=== PATIENT | male | born 1985 | race Hispanic/Latino ===

== ENCOUNTER → 2024-08-31 11:00 | Outpatient (CLI) | payer OTHER, SELFPAY ==
--- NOTE | 2024-08-31 11:02 | DI.MRI.S_ITS ---
PROCEDURE: MR LUMBAR SPINE WO CON INDICATIONS: LOW BACK PAIN TECHNIQUE: Noncontrast sagittal T1 spin echo and T2 fast echo, sagittal STIR, and T2 fast spin echo through the lumbar spine. In cases with scoliosis, additional coronal T2 fast spin echo may be performed. COMPARISON: None. FINDINGS: Image quality: Excellent. Alignment and Curvature: There is normal bony alignment. Bone Marrow: Mild low T1 high T2 signal in the superior endplate of S1 commonly related to degenerative Modic type changes, although if there is any history of trauma subtle bone edema related to trabecular fracture or bone contusion could have a similar appearance. There are other less common causes of bone edema. Multilevel degenerative changes with mild disc desiccation, disc height loss at L4-5 and L5-S1. Spinal Cord: Conus medullaris terminates at the L1 level. Visualized cord demonstrates normal signal and size. Paraspinous Soft Tissues: No paravertebral masses. T12-L1: Normal appearance. L1-L2: Normal appearance. L2-L3: Normal appearance. L3-L4: Mild facet osseous and ligamentous hypertrophic changes without central stenosis, disc protrusion or neural foraminal narrowing. L4-L5: Degenerative disc disease with broad-based posterior or circumferential disc bulge, mild facet osseous and ligamentous hypertrophic changes with mild bilateral neural foraminal narrowing. No central stenosis. L5-S1: Degenerative disc disease with broad-based posterior or circumferential disc bulge, mild facet osseous and ligamentous hypertrophic changes with mild bilateral neural foraminal narrowing. No central stenosis. IMPRESSION: Mild degenerative changes L4-5 and L5-S1. Mild nonspecific increased T2 weighted signal/bone edema in the superior endplate of S1. Dictated by: Jose L Araujo M.D. on 08/31/2024 at 12:53 Approved by: Jose L Araujo M.D. on 08/31/2024 at 13:04
== END ==
PROVIDERS: Referring Provider Orthopaedic Surgery Orthopaedic Surgery of the Spine; Visit Provider Orthopaedic Surgery Orthopaedic Surgery of the Spine
DX: M54.59 Other low back pain (principal); M51.369 Other intervertebral disc degeneration, lumbar region without mention of lumbar back pain or lower extremity pain; M48.061 Spinal stenosis, lumbar region without neurogenic claudication; M51.379 Other intervertebral disc degeneration, lumbosacral region without mention of lumbar back pain or lower extremity pain; M48.07 Spinal stenosis, lumbosacral region
CPT/HCPCS: 72148

== ENCOUNTER 2024-09-12 07:15 | Day surgery (SDC) | payer OTHER, SELFPAY ==
[2024-09-07 08:33] VITALS: BMI 30.5
[2024-09-12] VITALS (9 sets, daily range): BP systolic 112–141; BP diastolic 74–91; PULSE 71–88; RESP 12–16; TEMP 36–36.3; O2SAT 95–98; BMI 30.9
[2024-09-12] MEDS: ACETAMINOPHEN 325 MG TABLET 975 MG PO (07:58)
[2024-09-12] MEDS: LACTATED RINGERS 1,000 ML 42 ML IV ×2 (07:59→10:16)
--- NOTE | 2024-09-12 08:33 | PM.PREOP ---
Pre-operative Note Interval Note History & Physical reviewed/Exam performed by Physician: Yes Changes to H&P: No
[2024-09-12] MEDS: CEFAZOLIN 2 GM/100 ML PREMIX 100 ML IV (09:00)
--- NOTE | 2024-09-12 09:14 | SUR.OPER ---
Supine on padded OR bed, head on pillow, left arm secured on padded arm boards at <90 degrees abduction, right arm resting on padded arm table, legs uncrossed, safety belt at thigh, tape over blanket over lower legs.
[2024-09-12] MEDS: BUPIVACAINE 0.25% (PF) VIAL 30 ML INJ (09:19)
--- NOTE | 2024-09-12 11:20 | PM.OP.1 ---
Operative Date/Time/Diagnoses Date of procedure: 09/12/24 Time of procedure: 11:20 Pre-op diagnosis: RIGHT middle finger trigger finger, right carpal tunnel and right cubital tunnel syndrome Post-op diagnosis: same Procedure & Clinicians Procedure: RIGHT Middle finger trigger finger release, right carpal tunnel release, right cubital tunnel release with anterior transposition Same procedure as scheduled: Yes Surgeon: Jose L Hall Click Yes if Unassisted: Yes Anesthesia Type: General Operative Notes Findings: Cubital tunnel was scarred with the ulnar nerve trapped especially posteriorly. The nerve also subluxed with flexion of the elbow. Thickening of the A1 silvino of the middle finger and thickening of the transverse carpal ligament. Closure Type: primary Estimated Blood Loss (mL): 30 Procedure in detail: Laterality: Right Preoperative diagnosis: Right Cubital tunnel syndrome, right carpal tunnel syndrome, right long finger trigger finger. Procedure performed: Right Cubital tunnel decompression with anterior transposition, right carpal tunnel release and right long finger trigger finger release Postoperative diagnosis: Same Primary Surgeon: Jose L Hall MD Secondary Surgeon: None Anesthesia: General EBL: 30 ml Tourniquet: 95 minutes @ 250 mmHg Implants: none Indication For Surgery: Continued paresthesias despite non-operative treatments. He was also found to have triggering of the right long finger. We discussed the goals of surgery and the risks of injury to the ulnar nerve, MABC branches, and lack of symptom relief. The risks, benefits, and alternatives were discussed. Risks include pain, bleeding, infection, damage to nearby structures and cartilage, lack of symptom relief, need for further surgery, DVT, PE, stroke, and . Written consent was obtained. Examination Under Anesthesia: Nerve was unstable in the cubital tunnel. Operative Findings: The cubital tunnel was released and since the nerve would sublux out of the groove it was determined that we would require a anterior transposition with an adipose flap, thickening of the transverse carpal ligament and thickening of the A1 silvino of the right long finger. Procedure in Detail: The patient was met in the pre-operative hold area. Consent was verified and operative extremity was signed. The patient then met with anesthesia and was brought back to the operating room. The patient was placed supine on the operating table. A general anesthetic was administered. The extremity was then prepped and draped in the usual sterile fashion. A timeout was performed per protocol. All were in agreement and we proceeded. The arm was exsanguinated, and tourniquet was elevated. RIGHT LONG FINGER TRIGGER FINGER RELEASE A longitudinal incision was made at the level of the A1 pully overlying the affected digit. Blunt dissection was made with scissors down to the tendon sheath and the tissues were spread in line with the tendon and neurovascular structures. 3 blunt retractors were placed and the A1 silvino was identified. The A1 silvino was cut sharply with a knife from the distal to the proximal edge. A complete release was confirmed with the use of an elevator. Synovitis and thickening of the tendons were seen underneath it. The finger was then flexed and extended without any catching. The wound was irrigated copiously and closed with horizontal mattress sutures. RIGHT CARPAL TUNNEL RELEASE A 3cm longitudinal incision was made in line with the ulnar border of the ring finger starting at Bennett's Cardinal line distally. This was just radial to the hook of the hamate. Sharp dissection was brought down through the palmar fascia. Retractors were placed. The transverse carpal ligament was identified and a knife was used to incise it longitudinally until fat was seen distally in the palm. Long handled Metzenbaum scissors were then used to create a pocket just superficial to the transverse carpal ligament and a retractor was placed. The scissors were then placed deep to the ligament to bluntly separate the contents of the canal from ligament. I then pointed the tips of the scissors ulnarly and completed the release 2 cm into the antebrachial fascia. A freer elevator was used to confirm complete release both proximally and distally. The wound was then irrigated copiously and closed with 4-0 nylon in a horizontal mattress configuration. RIGHT CUBITAL TUNNEL RELEASE with transposition A 16cm incsion was made over the course of the ulnar nerve at the elbow. Careful dissection was brought down to the fascia where 1 branches of MABC nerve were seen and protected. The cubital tunnel was opened proximally along the posterior edge of the nerve. The cubital tunnel was carefully opened distally. Gentle neurolysis was performed but care was taken to not neurolyse any structures that were contributing to stability on the deep surface of the nerve. The distal branches were identified and left in place. There were distal branches that started at the medial epicondyle. The superficial and deep fascia of the forearm muscles were released. A finger was used to ensure a complete release proximally and distally without any persistent compression points. When ranging the elbow the nerve would completely sublux out of the cubital tunnel. It was decided that we would require a adipose flap for the anterior transposition. The flap was carefully made starting superiorly and working our way inferiorly. He has adequate fat to create the adipose flap. A portion of the septum was removed. The nerve then was easily placed into the bed of the fat and the fat was secured to the medial epicondyle with 3-0 Vicryl. The elbow was then taken through range of motion and there was adequate room for the nerve to glide anterior to the medial epicondyle. I was also able to stick my finger in side this fat tunnel and there was plenty of room and there is no locations where the nerve was being compressed. The wound was then irrigated copiously and the fascial flaps were closed loosely over the nerve. The anterior flap of the tunnel tissue was loosely approximated to the posterior subcutaneous tissues without any compression on the nerve. The skin was then closed with 2-0 vicryl and running 3-0 nylon. 30cc of local anesthetic were placed. A large bulky dressing was applied.. The patient was awakened and transferred to the recovery room. Postoperative Plan: Same day surgery discharge Dressing on until follow up Short arc ROM OK with dressing on F/u in 2 weeks to advance ROM Jose L Hall MD Complications: none Post-operative Condition: stable Disposition: PACU
[2024-09-12] MEDS: OXYCODONE IR 5 MG TABLET PO ×2 (11:29→12:05)
[2024-09-12] MEDS: ONDANSETRON 4 MG/2 ML INJ IV (12:17)
--- NOTE | 2024-09-12 12:22 | SUR.PHASEII ---
Patient c/o nausea after 2nd Oxycodone. Patient had tolerated applesauce. Medicated with Zofran.
--- NOTE | 2024-09-12 15:40 | SUR.PHASEII ---
Patient sat at the side of the bed and vomited clear fluid. He requested to get dressed after vomiting, spouse present. Patient taken to the bathroom by wheelchair and requested to discharge. He reported his nausea improved and his RUE pain was 3/10. Patient requested a sling for comfort, VTO from Dr. Hall patient may have sling. Large sling placed for comfort.
== END 2024-09-12 13:05 | disposition home or self-care (01) ==
PROVIDERS: Referring Provider Orthopaedic Surgery; Visit Provider Orthopaedic Surgery
PROC: (CPT 64718; principal; 2024-09-12 08:30)
DX: G56.21 Lesion of ulnar nerve, right upper limb (principal); G56.01 Carpal tunnel syndrome, right upper limb; M65.331 Trigger finger, right middle finger; Z87.891 Personal history of nicotine dependence
CPT/HCPCS: 64718; 64721; 26055; J0690; J1100; J1171; J2250; J2405; J2704; J3010

== ENCOUNTER → 2024-12-19 07:21 | Outpatient (CLI) | payer OTHER, SELFPAY ==
--- NOTE | 2024-12-19 07:41 | DI.MRI.S_ITS ---
PROCEDURE: MR SHOULDER RT WO CON INDICATIONS: PAIN TECHNIQUE: Noncontrast oblique coronal T2 fast spin echo with fat saturation, oblique sagittal T1 spin echo and T2 fast spin echo with fat saturation, axial T1 spin echo and T2 fast spin echo with fat saturation through the shoulder. COMPARISON: None. FINDINGS: Image quality: Excellent. Rotator cuff: Low-grade articular and bursal surface partial thickness tear involving distal supraspinatus at its insertion on humeral head extending to musculotendinous junction. Distal infraspinatus and subscapularis tendinosis is seen. No full- thickness rotator cuff tendon rupture. Sagittal images demonstrate no significant rotator cuff muscle atrophy. Bones and bursae: chronic appearing shallow Hill-Sachs deformity is seen. No Bankart fracture. No marrow edema. No acute fracture or dislocation. ld acromioclavicular joint osteoarthritic changes are seen. Type 2 acromion without an os acromiale. Small amount of joint fluid and subacromial subdeltoid bursal fluid is seen, no loose bodies. Capsule and soft tissues: There is fraying of superior anterior glenoid labrum with T2 hyperintense signal and adjacent 7 x 5 mm cystic area suggestive of superior anterior glenoid labral tear with perilabral cyst. Subtle signal abnormality and fraying involving anterior inferior glenoid labrum is also seen. The long head of the biceps tendon demonstrates normal location and morphology. The rotator interval appears normal, without fibrosis. The coracohumeral ligament is normal in thickness. IMPRESSION: 1. Chronic appearing shallow Hill-Sachs deformity. No Bankart fracture. No marrow edema. No acute fracture or dislocation. Mild acromioclavicular joint osteoarthritis. Small joint effusion and subacromial subdeltoid bursal fluid, no loose bodies. 2. Low-grade articular and bursal surface partial thickness tear involving distal supraspinatus extending to musculotendinous junction. Distal infraspinatus and subscapularis tendinosis. No full-thickness rotator cuff tendon rupture. 3. Suggestion of superior anterior glenoid labral tear with adjacent sub cm perilabral cyst as above. Suggestion of subtle anterior inferior glenoid labral tear. Dictated by: Jose Mathews M.D. on 12/19/2024 at 10:17 Approved by: Jose Mathews M.D. on 12/19/2024 at 10:26
== END ==
LOC: MRI 07:22
PROVIDERS: PCP Family Medicine; Referring Provider Family Medicine; Visit Provider Family Medicine
DX: M75.111 Incomplete rotator cuff tear or rupture of right shoulder, not specified as traumatic (principal); M19.011 Primary osteoarthritis, right shoulder; M25.511 Pain in right shoulder
CPT/HCPCS: 73221

== ENCOUNTER → 2025-02-03 06:52 | Outpatient (CLI) | payer OTHER, SELFPAY ==
--- NOTE | 2025-02-03 06:53 | DI.US.S_ITS ---
PROCEDURE: US ABDOMEN LIMITED INDICATIONS: RUQ pain TECHNIQUE: Real-time scanning was performed of the abdominal and retroperitoneal organs, with image documentation. COMPARISON: None. FINDINGS: Liver: Liver parenchyma is hyperechoic and homogeneous. No mass, cirrhosis or intrahepatic biliary dilation. Gallbladder: No gallstones. No wall thickening. No pericholecystic edema. Negative sonographic Nolan's sign. Biliary ducts: Intrahepatic bile ducts are non-dilated. Extrahepatic bile duct caliber measures 3 mm. Normal is 6-7 mm or less in diameter, or 10 mm or less post-cholecystectomy. Pancreas: Limited evaluation of the pancreatic tail due to bowel gas artifacts. Otherwise, grossly unremarkable pancreas. Miscellaneous: No free abdominal fluid. IMPRESSION: Echogenic liver probably represents fatty infiltration . No mass or cirrhosis detected. Study limited by bowel gas. Otherwise, unremarkable ultrasound. Dictated by: Nayeli Soto M.D. on 02/03/2025 at 8:42 Approved by: Nayeli Soto M.D. on 02/03/2025 at 8:44
== END ==
LOC: US 06:52
PROVIDERS: PCP Family Medicine; Referring Provider Surgery; Visit Provider Surgery
DX: K21.9 Gastro-esophageal reflux disease without esophagitis (principal); R10.11 Right upper quadrant pain
CPT/HCPCS: 76705

== ENCOUNTER → 2025-02-24 10:35 | Outpatient (CLI) | payer OTHER, SELFPAY ==
--- NOTE | 2025-02-24 10:37 | DI.US.S_ITS ---
PROCEDURE: US INJECTION TENDON SHEATH INDICATIONS: csi in R proximal biceps tendon TECHNIQUE: The indications, alternatives, benefits, risks, and complications of the procedure were explained to the patient. Written informed consent was obtained and placed in the chart. The patient was placed in an appropriate position on the fluoroscopy table, and a site was chosen for percutaneous access under ultrasound guidance. Local anesthetic was administered using a 1% lidocaine solution. A 22 gauge 1/2 inch needle was then used to access the right biceps tendon sheath in the bicipital groove. Peritendinitis location of the needle tip was confirmed by real time ultrasound imaging, followed by 0.5 cc (20 mg) triamcinolone steroid administration and 0.5 cc ropivacaine. The needle was then withdrawn, and a bandage applied to the puncture site. COMPARISON: None. FINDINGS: Joint injected: Biceps tendon sheath Medications injected: 1.0 mL of 40 mg/mL Kenalog and 0.5% Ropivacaine mixture. Patient's pain before injection: Mild Patient's pain after injection: Mild Complications: None. IMPRESSION: Successful ultrasound guided administration of steroid and anaesthetic solution into the right biceps tendon sheath. Dictated by: Kit Stokes M.D. on 02/24/2025 at 12:08 Approved by: Kit Stokes M.D. on 02/24/2025 at 12:11
== END ==
LOC: US 10:36
PROVIDERS: PCP Family Medicine; Referring Provider Family Medicine; Visit Provider Radiology Diagnostic Radiology
DX: M25.511 Pain in right shoulder (principal)
CPT/HCPCS: 20550; 76942

== ENCOUNTER 2025-04-04 10:10 | Day surgery (SDC) | payer OTHER, SELFPAY ==
[2025-03-29 14:59] VITALS: BMI 31.3
[2025-04-04] VITALS (7 sets, daily range): BP systolic 124–135; BP diastolic 77–88; PULSE 67–88; RESP 12–16; TEMP 36.6–36.7; O2SAT 92–100
--- NOTE | 2025-04-04 | PATH_ITS ---
[facility] Accession Number: [id number] No. of containers..03 Tissue . 01 Material submitted: . PART A: duodenum - DUODENAL PART B: stomach - ANTRUM PART C: esophagus - ESOPHAGUS . 01 Diagnosis: A. DUODENUM, BIOPSY: Histologically unremarkable duodenal mucosa. Negative for villous blunting and intraepithelial lymphocytosis. Negative for dysplasia and malignancy. . B. STOMACH, ANTRUM, BIOPSY: Antral mucosa with mild chronic inflammation. Negative for Helicobacter organisms on IHC stain. Negative for intestinal metaplasia, dysplasia, and malignancy. . C. GASTROESOPHAGEAL JUNCTION, BIOPSY: Squamocolumnar mucosa with mild reflux changes. Negative for fungal organisms and intestinal metaplasia by AB/PAS stain. Negative for dysplasia, and malignancy. [facility] [place] 04/12/2025 1538 Local . 01 Comment: Immunohistochemistry for Helicobacter organisms is performed on block B1 and is negative. Special stain AB/PAS is performed on block C1 and is negative for fungal organisms and intestinal metaplasia. . - Technical Note: The immunohistochemical and/or special stains reported were performed with appropriate controls at [facility] ([address], [facility] [address]). This test was developed and performance characteristics validated by [facility]. It has not been cleared or approved by the Food and Drug Administration. . 01 Electronically signed: . Yenny Russ DO, Pathologist NPI- [id number] . 01 Gross description: . A. Received in formalin with two identifiers and duodenal biopsy, is a single friable winkler soft tissue fragment 0.5 cm in greatest dimension. Submitted entirely in cassette A1. B. Received in formalin with two identifiers and antrum biopsy, is a single winkler soft tissue fragment 0.3 cm in greatest dimension. Submitted entirely in cassette B1. C. Received in formalin with two identifiers and esophageal biopsy, are four friable winkler soft tissue fragments 0.2 to 0.5 cm in greatest dimension. Submitted entirely in cassette C1. ([id number]) /KING 04/10/20254 Local . 01 Pathologist provided ICD-10: R10.13 . 01 CPT . 076661, 064364, 093168, [id number], [id number] Specimen Comment: A courtesy copy of this report has been sent to [facility] Performed at: [address] [address], [place], [place] [id number] MD Stas Hull MD Phone: [phone]
--- NOTE | 2025-04-04 06:44 | P.HP_ITS ---
History of Present Illness History of Present Illness Date Patient Seen: 04/04/25 Chief complaint: SDC Narrative: 40yo M, presents for EGD today for GERD. COUNTS INCLUDE 234 BEDS AT THE [facility] Medical History (Updated 03/29/25 @ 14:57 by Harriet Stokes, RN) H. pylori infection Sleep apnea treated with continuous positive airway pressure (CPAP) HTN (hypertension) Surgical History (Updated 03/29/25 @ 14:57 by Harriet Stokes RN) History of carpal tunnel release (09/2024) Social History household members: spouse Smoking Status: Former smoker Meds Home Medications and Allergies Home Medications ?Medication ?Instructions ?Recorded ?Confirmed ?Type acetaminophen 500 mg tablet 1,000 mg (2 x 500 mg) PO Q 8H PRN 09/01/24 03/13/25 Rx pain #120 tabs celecoxib 50 mg capsule 50 mg PO BID 09/01/24 History diclofenac sodium 1 % topical gel 2 g topical QID 08/1203/13/25 History (Arthritis Pain (diclofenac)) lisinopril 2.5 mg tablet 2.5 mg PO DAILY 09/01/2405/07 History methocarbamol 500 mg tablet 500 mg PO BEDTIME 09/01/24 03/13/25 History omeprazole 10 mg capsule,delayed 10 mg PO DAILY 03/13/25 History release famotidine 20 mg tablet 20 mg PO BID 03/29/25 History Allergies Allergy/AdvReac Type Severity Reaction Status Date / Time codeine AdvReac Unknown hyperactive Verified 01/25/25 14:05 Exam Narrative Exam Narrative: Const General: healthy appearing, comfortable and no acute distress Orientation: alert and oriented x3 HENMT Ears: hearing grossly normal bilaterally Eyes Visual Lundy: normal visual lundy by confrontation Conjunctivae: conjunctivae normal Sclera: sclerae normal EOM: EOM intact bilaterally Resp Effort & Inspection: normal respiratory effort and able to speak in complete sentences Cardio Rate: regular rate GI Palpation: soft (NT) Extrem General: no pedal edema and no calf tenderness Assessment & Plan Assessment and plan (1) GERD (gastroesophageal reflux disease): Qualifiers: Esophagitis presence: without esophagitis Qualified Code(s): K21.9 - Gastro-esophageal reflux disease without esophagitis Status: Acute Plan Plan EGD to evaluate for esophagitis, hiatal hernia, Kirkland's, dysplasia, H pylori, PUD. The risks, benefits and options regarding the procedure were e xplained to the patient in detail. Risk discussion included but not limited to: bleeding, perforation, aspiration, sore throat. The patient was encouraged to ask questions and they were answered to their satisfaction. The patient understands and is agreeable to proceed. Time-Based Coding :: [TOTAL MINUTES] spent with patient and on the chart (including review of chart, obtaining history, exam, reviewing outside data, placing orders, documenting exam and treatment plan, and counseling patient) on [DATE]. [employer] Supervisor Document charge(s): Yes Charge Codes Inpatient/observation care including admit and discharge same day: [id number]
--- NOTE | 2025-04-04 10:36 | PM.OP.EGD ---
Operative Date/Time/Diagnoses Date of procedure: 04/04/25 Time of procedure: 11:10 Pre-op diagnosis: GERD Post-op diagnosis: same Procedure & Clinicians Study performed: EGD with biopsy Same procedure(s) as scheduled: Yes Indications: 40yo M, chronic GERD Surgeon: Jeromy Serrano Anesthesia Type: MAC +/- Procedure Notes SCOAP/Timeout: Performed Procedure in detail: EGD Informed consent was obtained. The procedure, its risks, benefits, and alternatives were discussed. Patient understood and agreed to proceed. The patient was placed in the left lateral decubitus position with head elevated. Sedation given per anesthesia. The video endoscope was inserted into the oropharynx and guided under direct vision into the esophagus, stomach, and duodenum which were carefully examined. The scope was retroflexed to examine the hiatus and gastroesophageal junction. Antral biopsies were obtained for Helicobacter pylori. The patient tolerated the procedure very well. There were no apparent complications. Significant EGD findings: Z-line noted at: 43cm LA Grade A esophagitis, biopsied Mild antral gastritis, biopsied Mild duodenitis, biopsied Patulous hiatus, no hiatal hernia, active reflux into distal esophagus noted No ulcer in duodenum, stomach or esophagus No esophageal stricture Findings: gastritis and other findings (esophagitis) Specimen(s): other (biopsies) Estimated Blood Loss: 5 Complications: none Impression: Mild inflammation of duodenum, antrum and distal esophagus, biopsies pending Post-procedure Recommendations: Will call with biopsy results Plan for aftercare: PACU then home Follow up: as needed Disposition: PACU
[2025-04-04] MEDS: LACTATED RINGERS 1,000 ML 42 ML IV (10:47)
== END 2025-04-04 11:48 | disposition home or self-care (01) ==
PROVIDERS: PCP Family Medicine; Referring Provider Surgery; Visit Provider Surgery
PROC: 0DJ08ZZ Inspection of Upper Intestinal Tract, Via Natural or Artificial Opening Endoscopic (ICD-10-PCS; CPT 43239; principal; 2025-04-04 11:15)
DX: K21.00 Gastro-esophageal reflux disease with esophagitis, without bleeding (principal); K29.80 Duodenitis without bleeding; Z87.891 Personal history of nicotine dependence; K29.50 Unspecified chronic gastritis without bleeding
CPT/HCPCS: 43239; J2704; J7120